=== PATIENT | male | born 1995 | race Two or more races ===

== ENCOUNTER 2020-09-02 14:00 | Inpatient (IN) ==
[2020-09-02] MEDS ORDERED: SODIUM CHLORIDE 0.9% 1000ML 1,000 ML IV SCH (14:37)
--- NOTE | 2020-09-02 14:43 | Emergency Department Note ---
History of Present Illness General Chief complaint: Abdominal Pain Stated complaint: REFERRED BY [facility] Time Seen by Provider: 09/02/20 14:18 History of Present Illness Patient is a healthy 25-year-old male status post laparoscopic gastric bypass procedure 2 years ago who is referred to the emergency department for evaluation of vomiting x10 days. Patient states that about a week and a half ago, he started vomiting after eating. The first few times, he was not particularly worried because this does happen to them on occasion, but the symptoms persisted. He states that after he eats, he gets a dull epigastric pain, then 20 minutes later he promptly vomits. He was able to keep some food down initially, now is vomiting everything, including soft foods and liquids that he switched over to. He currently has no pain. He has been tolerating apple juice and popsicles over the weekend. There is no nausea associated with the vomiting. No hematemesis. He admits to decreased bowel movements, but no melen a or hematochezia. He admits to decreased urinary output but no urinary symptoms. He was seen at [facility] last week, 3 days ago, had an x-ray performed and blood work, which were reportedly unremarkable. He was given Zofran which he tried and did not help. He was in contact with the provider [facility] again today, and was directed to the emergency department for further work-up of his symptoms. He spoke with his doctor at home and intact with testing he might need an endoscopy. 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 Beliefs That Will Affect Care: None Current Living Situation: Alone Current Living Situation Comment: apartment Other Information That Helps Us Care for You: No Feels Safe at Home: Yes Safety Concerns: Feels Safe At This Time Assistive Devices: None Review of Systems A total of 10 systems reviewed and were otherwise negative Physical Exam Vital Signs Vital Signs - 24 hr 09/02/20 14:06 09/02/20 17:42 09/02/20 19:45 Temperature 37.1 C Temperature Source Temporal Artery Scan Pulse Rate 97 H Pulse Rate [Finger] 70 73 Pulse Rhythm Regular Pulse Rhythm [Finger] Regular Pulse Strength [Finger] Normal Respiratory Rate 18 18 18 Respiratory Effort / Characteristics Non-Labored Spontaneous Non-Labored Spontaneous Respiratory Depth Normal Normal Respiratory Pattern Regular Blood Pressure 109/74 Blood Pressure [Left Arm] 120/79 166/67 H Blood Pressure Mean 85 Blood Pressure Mean [Left Arm] 92 100 Pulse Oximetry 97 97 100 Oxygen Delivery Method Room Air Room Air Sepsis Recent Fever Within 48 Hours No Sepsis New/Unexplained Change in Mental Status No Sepsis Action Taken by Nursing No Action Required CONSTITUTIONAL: Patient is a pleasant, well-appearing 25-year-old male who is awake and alert and in no acute distress. EYES: Pupils equal, round, reactive to light and accommodation. EOMs intact without nystagmus. Sclera are anicteric. ENT: Tympanic membranes intact, with normal landmarks. External canals are clear. Oral and nasopharynx are clear. Mucous membranes are moist, no lesions, tongue and gums appear normal. CARDIOVASCULAR: Regular rate and rhythm, with normal S1 and S2, no murmur or gallop or rub is heard. Peripheral pulses easily palpable. RESPIRATORY: Breath sounds equal and clear to auscultation without wheezes, rales, or rhonchi heard. Full and equal chest expansion without accessory muscle use or retractions. ABDOMEN: Bowel sounds are present. Well-healed laparoscopic surgical scars are noted. Abdomen is soft, nondistended, tympanic to percussion throughout. Slight tenderness to palpation in the epigastric region, no guarding or rebound. There is no pain in the right upper quadrant, negative Urbina sign. No pain in the right lower quadrant over McBurney's point. No CVA tenderness. INTEGUMENTARY: No lesions or rash, normal skin turgor. LYMPH: No lymphadenopathy. Course Course The patient was seen and assessed as above. Old records were reviewed. IV lock was initiated and laboratory studies were collected. He was hydrated with normal saline solution and made NPO. CBC with differential, CMP, lipase and urinalysis were collected. CT scan of the abdomen pelvis with IV and oral contrast was ordered. Laboratory studies are fairly unremarkable. White count is 5100, no left shift, no bandemia. H&H 15.5 and 44.9. Electrolytes are within normal limits. BUN 17, creatinine 0.8. Transaminases are not elevated. Lipase is within normal limits. Urine microscopy is without signs of infection. Patient tolerated the oral CT contrast well, he did get a little bit nauseous, and it was given Zofran 4 mg IV. He was only able to drink about half of the cup of contrast however. CT scan of the abdomen pelvis with IV and oral contrast was reviewed with interpreting physician, Dr. Ashford. Patient appears to have a Katty-en-Y gastric bypass, in addition to a gastric band. The gastric pouch and distal esophagus are mildly distended and filled with contrast. There appears to be a partial obstruction at the gastrojejunostomy with impacted ingested contents at the anastomosis. The contrast does pass into the jejunum. Otherwise there is mild appendiceal wall thickening and a few appendicoliths, but no periappendiceal infiltration to suspect acute appendiciti s. Patient history and presentation were reviewed with attending physician. I did discuss the CT findings with general surgery on-call, Dr. Ferrell, who felt that due to the complicated surgical history the patient would be better served at a tertiary care center. CT findings were discussed with the patient, in addition to the need for transfer. He has elected [facility] in [place]. Transfer was initiated. The patient was reviewed with Dr. Campo, with [facility] surgery, and he felt that the patient needed upper endoscopy by GI, and that transfer was not indicated. I spoke with Dr. Ibarra, [facility], and discussed the patient with him. He states that he can scope the patient tomorrow. Consultation was then placed with the [facility] Hospitalist Service, Dr. Mcnally, for admission. Administered Medications Potassium Chloride/Sodium Chloride (Normal Saline W/20 Meq Kcl) 20 meq in 1,000 mls @ 100 mls/hr IV .Q10H [facility] Stop: 10/03/20 00:14 Last Admin: 09/03/20 00:49 Dose: 100 mls/hr Documented by: [id number] Famotidine 20 mg/ Syringe 5 mls @ 2.5 mls/min IV BID [facility] Stop: 10/03/20 00:29 Last Admin: 09/03/20 00:50 Dose: 2.5 mls/min Documented by: [id number] Discontinued Medications Sodium Chloride (Nss 1000ml) 1,000 mls @ 999 mls/hr IV .Q1H1M [facility] Stop: 09/02/20 15:37 Last Infusion: 09/02/20 16:57 Dose: 0 mls/hr Documented by: [id number] Admin: 09/02/20 15:11 Dose: 999 mls/hr Documented by: [id number] Sodium Chloride (Nss 1000ml) 1,000 mls @ 250 mls/hr IV .Q4H [facility] Stop: 10/02/20 14:44 Last Admin: 09/02/20 23:49 Dose: Not Given Documented by: [id number] Admin: 09/02/20 23:49 Dose: Not Given Documented by: [id number] Infusion: 09/02/20 20:58 Dose: 0 mls/hr Documented by: [id number] Admin: 09/02/20 16:56 Dose: 250 mls/hr Documented by: [id number] Ioversol (Optiray 300 100ml) 88 ml IV ONCE ONE Stop: 09/02/20 17:22 Last Admin: 09/02/20 17:22 Dose: 88 ml Documented by: [id number] Ketorolac Tromethamine (Ketorolac Tromethamine 60 Mg/2 Ml Vial) 60 mg IM NOW STA Stop: 09/02/20 15:13 Last Admin: 09/02/20 15:25 Dose: Not Given Documented by: [id number] Ondansetron HCl (Ondansetron Inj 2 Mg/Ml 2 Ml Vial) 4 mg IV NOW STA Stop: 09/02/20 15:55 Last Admin: 09/02/20 15:55 Dose: 4 mg Documented by: [id number] Medical Decision Making Differential Diagnosis Differential diagnoses entertained included GERD, gastritis, esophagitis, GERD, bowel obstruction, food bolus, peptic or duodenal ulcer, cholelithiasis, biliary colic, acute cholecystitis, ascending cholangitis, acute pancreatitis, among others. Medical Records Attestation: I reviewed the patient's medical records. Home Medications Current Medication List: was personally reviewed by me Laboratory Data Attestation: I reviewed the patient's lab results. Result diagrams: 09/02/20 14:59 09/02/20 14:59 Lab Results 09/02/20 09/02/20 09/02/20 Range/Units 14:59 14:59 16:55 WBC 5.18 (4.8-10.8) K/uL RBC 5.34 (4.7-6.1) M/uL Hgb 15.5 (14.0-18.0) g/dL Hct 44.9 (42-52) % MCV 84.1 (80-100) fL MCH 29.0 (25-34) pg MCHC 34.5 (32-36) g/dL RDW Std Deviation 39.3 (36.4-46.3) fL RDW Coeff of Sohan 12.8 (11.5-14.5) % Plt Count 259 (130-400) K/uL MPV 9.8 (7.4-10.4) fL Immature Gran % (Auto) 0.2 % Neut % (Auto) 53.1 % Lymph % (Auto) 32.2 % Caswell % (Auto) 12.2 % Eos % (Auto) 1.9 % Baso % (Auto) 0.4 % Neut # (Auto) 2.75 (1.4-6.5) K/uL Lymph # (Auto) 1.67 (1.2-3.4) K/uL Caswell # (Auto) 0.63 H (0.11-0.59) K/uL Eos # (Auto) 0.10 (0-0.5) K/uL Baso # (Auto) 0.02 (0-0.2) K/uL Immature Gran # (Auto) 0.01 (0.00-0.02) K/uL Sodium 139 (136-145) mmol/L Potassium 4.1 (3.5-5.1) mmol/L Chloride 107 (98-107) mmol/L Carbon Dioxide 27 (21-32) mmol/L Anion Gap 6.0 (3-11) BUN 17 (7-18) mg/dl Creatinine 0.80 (0.6-1.4) mg/dl Est Cr Clr Drug Dosing 171.9 ml/min Est GFR ( Amer) 144.9 Est GFR (Non-Af Amer) 125.0 BUN/Creatinine Ratio 21.2 H (10-20) Glucose 82 (70-99) mg/dl Calcium 9.7 (8.5-10.1) mg/dl Total Bilirubin 0.4 (0.2-1) mg/dl AST 10 L (15-37) U/L ALT 18 (12-78) U/L Alkaline Phosphatase 108 (45-117) U/L Total Protein 8.2 (6.4-8.2) gm/dl Albumin 4.0 (3.4-5.0) gm/dl Globulin 4.2 H (2.5-4.0) gm/dl Albumin/Globulin Ratio 1.0 (0.9-2) Lipase 151 (73-393) U/L Urine Color Dark Yellow Urine Appearance Cloudy A (Clear) Urine pH 7.5 (4.5-7.5) Ur Specific Sutton 1.023 (1.000-1.030) Urine Protein Trace H (Negative) Urine Glucose (UA) Negative (Negative) Urine Ketones Trace H (Negative) Urine Blood Negative (Negative) Urine Nitrite Negative (Negative) Urine Bilirubin 1+ H (Negative) Urine Urobilinogen Negative (Negative) Ur Leukocyte Esterase Negative (Negative) Urine WBC (Auto) 1-5 (0-5) /hpf Urine RBC (Auto) 0-4 (0-4) /hpf U Hyaline Cast (Auto) 10-30 H (0-5) /lpf U Epithel Cells (Auto) >30 H (0-5) /lpf Urine Bacteria (Auto) Negative (Negative) Imaging Data Attestation: I personally reviewed and interpreted this imaging study as follows: Radiologist's Impression: Abdomen/Pelvis CT 09/02/20 14:36 CT OF THE ABDOMEN AND PELVIS WITH CONTRAST CLINICAL HISTORY: LAP BAND IN PLACE, VOMITS AFTER EATING COMPARISON STUDY: None. TECHNIQUE: Following IV administration of 89 mL of Optiray, axial images of the abdomen and pelvis were obtained from the lung bases to the proximal femurs. Images were reviewed in the axial, sagittal, and coronal planes. IV contrast was administered without complication. Automated exposure control was utilized for the study. A dose lowering technique was utilized adhering to the principles of ALARA. Oral contrast was administered. CT DOSE: 983.77 mGy.cm FINDINGS: Lung bases are unremarkable. The distal esophagus is mildly distended and filled with oral contrast. No pneumatosis, free air or portal venous gas is present. The liver, spleen, adrenal glands, kidneys and pancreas are unremarkable. Is no hydronephrosis. The caliber and wall thickness of small and large bowel are normal. A few appendicoliths within the appendix are noted. The caliber of the appendix is at the upper limits of normal, measuring 6 mm. There is no periappendiceal infiltration. Mild appendiceal wall thickening is present. Major vasculature is patent. There are postoperative findings consistent with Katty-en-Y gastric bypass. The gastric pouch is filled with oral contrast and appears distended. There is possible impacted ingested material measuring 4.2 x 2.6 cm at the gastrojejunostomy. Contrast does pass into the jejunum. The findings raise the possibility of a partial obstruction. IMPRESSION: 1. Postoperative findings suggestive of Katty-en-Y gastric bypass. Gastric pouch and distal esophagus mildly distended and filled with contrast. This may represent a partial obstruction at the gastrojejunostomy with impacted ingested contents at the anastomosis. 2. A few appendicoliths within the appendix with mild appendiceal wall thickening. No periappendiceal infiltration to strongly suggest acute appendicitis. ACT 112: Negative or not required by law. Electronically signed by: Zen Ashford M.D. 09/02/2020 5:42 PM ADDENDUM Addendum: In addition to apparent Katty-en-Y gastric bypass, there is a band-like density at the gastrojejunostomy which could reflect a type of gastric lap band however there is no percutaneous reservoir. Correlation with surgical history is recommended. Findings discussed with Leta Augustine at time of addendum. Electronically signed by: Zen Ashford M.D. 09/02/2020 5:56 PM MDM Narrative See ED course. Impression & Plan Gastric outlet obstruction, Partial small bowel obstruction, History of Katty-en-Y gastric bypass Discharge Plan Visit Data Chief Complaint: Abdominal Pain Stated Complaint: REFERRED BY [facility] ED Provider: Rik Sutherland ED Midlevel Provider: Leta Augustine Discharge Problem: Gastric outlet obstruction, Partial small bowel obstruction, History of Katty-en-Y gastric bypass Patient Disposition: Admitted As Inpatient Discharge Instructions Interventions: ED Discharge Assessment Last Done: 09/02/20 23:12
[2020-09-02] MEDS ORDERED: KETOROLAC TROMETHAMINE 60 MG/2 ML VIAL IM STA (15:12)
[2020-09-02 15:19] LABS: Basophils # (auto) 0.02 K/uL (0-0.2); Basophils % (auto) 0.4 %; Eosinophils % (auto) 1.9 %; Hematocrit (blood only) 44.9 % (42-52); Hemoglobin 15.5 g/dL (14.0-18.0); Immature Granulocytes # (auto) 0.01 K/uL (0.00-0.02); Immature Granulocytes % (auto) 0.2 %; Lymphocytes # (auto) 1.67 K/uL (1.2-3.4); Lymphocytes % (auto) 32.2 %; Mean Corpuscular Hgb Conc 34.5 g/dL (32-36); Mean Corpuscular Volume 84.1 fL (80-100); Mean Platelet Volume 9.8 fL (7.4-10.4); Monocytes # (auto) 0.63 K/uL (0.11-0.59); Monocytes % (auto) 12.2 %; Neutrophils # (auto) 2.75 K/uL (1.4-6.5); Neutrophils % (auto) 53.1 %; Platelet Count 259 K/uL (130-400); RDW Coefficient of Variation 12.8 % (11.5-14.5); RDW Standard Deviation 39.3 fL (36.4-46.3); Red Blood Count 5.34 M/uL (4.7-6.1); White Blood Count 5.18 K/uL (4.8-10.8)
[2020-09-02 15:43] LABS: BUN Creatinine Ratio 21.2 (10-20); Calcium 9.7 mg/dl (8.5-10.1); Creatinine Clr Calc Pharmacy 171.9 ml/min; Est GFR (African American) 144.9; Potassium 4.1 mmol/L (3.5-5.1)
[2020-09-02 15:46] LABS: Bilirubin,Total 0.4 mg/dl (0.2-1); Globulin 4.2 gm/dl (2.5-4.0); Total Protein 8.2 gm/dl (6.4-8.2)
[2020-09-02] MEDS ORDERED: ONDANSETRON INJ 2 MG/ML 2 ML VIAL IV STA (15:54)
[2020-09-02] MEDS: SODIUM CHLORIDE 0.9% 1000ML 1,000 ML IV SCH ×2 (16:56→23:49)
[2020-09-02 17:12] LABS: Appearance Urine Cloudy (Clear); Bacteria Urine Automated Negative (Negative); Bilirubin Urine 1+ (Negative); Blood Urine Negative (Negative); Color Urine Dark Yellow; Epithelial Cell Urine Auto >30 /lpf (0-5); Glucose Urine UA Negative (Negative); Ketones Urine Trace (Negative); Leukocyte Esterase Urine Negative (Negative); Nitrite Urine Negative (Negative); Protein Urine Trace (Negative); RBC Urine Automated 0-4 /hpf (0-4); Specific Gravity Urine 1.023 (1.000-1.030); Urobilinogen Urine Negative (Negative); pH Urine 7.5 (4.5-7.5)
[2020-09-02] MEDS ORDERED: OPTIRAY 300 100mL IV ONE (17:21)
--- NOTE | 2020-09-02 17:44 | CT Scan Report ---
CT OF THE ABDOMEN AND PELVIS WITH CONTRAST CLINICAL HISTORY: LAP BAND IN PLACE, VOMITS AFTER EATING COMPARISON STUDY: None. TECHNIQUE: Following IV administration of 89 mL of Optiray, axial images of the abdomen and pelvis we re obtained from the lung bases to the proximal femurs. Images were reviewed in the axial, sagittal, and coronal planes. IV contrast was administered without complication. Automated exposure control wa s utilized for the study. A dose lowering technique was utilized adhering to the principles of ALARA . Oral contrast was administered. CT DOSE: 983.77 mGy.cm FINDINGS: Lung bases are unremarkable. The distal esophagus is mildly distended and filled with oral contrast. No pneumatosis, free air or portal venous gas is present. The liver, spleen, adrenal glands , kidneys and pancreas are unremarkable. Is no hydronephrosis. The caliber and wall thickness of smal l and large bowel are normal. A few appendicoliths within the appendix are noted. The caliber of the appendix is at the upper limits of normal, measuring 6 mm. There is no periappendiceal infiltration. Mild appendiceal wall thickening is present. Major vasculature is patent. There are postoperative findings consistent with Katty-en-Y gastric bypass. The gastric pouch is fille d with oral contrast and appears distended. There is possible impacted ingested material measuring 4. 2 x 2.6 cm at the gastrojejunostomy. Contrast does pass into the jejunum. The findings raise the poss ibility of a partial obstruction. IMPRESSION: 1. Postoperative findings suggestive of Katty-en-Y gastric bypass. Gastric pouch and distal esophagus mildly distended and filled with contrast. This may represent a partial obstruction at the gastrojeju nostomy with impacted ingested contents at the anastomosis. 2. A few appendicoliths within the appendix with mild appendiceal wall thickening. No periappendiceal infiltration to strongly suggest acute appendicitis. ACT 112: Negative or not required by law. Electronically signed by: Zen Ashford M.D. 09/02/2020 5:42 PM
--- NOTE | 2020-09-02 20:33 | History & Physical Report ---
Date of Service September 02, 2020 Assessment & Plan (1) Gastric outlet obstruction: Intractable nausea and vomiting/gastric outlet obstruction/partial SBO/status post Katty-en-Y gastric bypass- NPO No NG tube at this time Famotidine 20 mg IV every 12 hours Zofran 4 mg IV every 6 hours as needed NSS + KCl 20 mEq at 100 mils per hour Serial CBC with differential, chemistry profile and magnesium levels aspiration precautions Consult gastroenterology, who is aware the patient, and will be in to perform an EGD in the a.m. Present on Admission?: Yes (2) Partial small bowel obstruction: See above Present on Admission?: Yes (3) History of Katty-en-Y gastric bypass: See above Present on Admission?: Yes History of Present Illness Chief Complaint: The patient was referred by [facility] to the emergency department with complaint of intermittent nausea and vomiting over the past 10 days. Primary Care Provider: [facility] The patient is a 25-year-old male with a past medical history including laparoscopic gastric bypass surgery with fixed gastric banding 2 years ago while in [place]. He initially presented to [facility] last week, due to symptoms of nausea and vomiting that began 10 days ago. He was also seen at [facility] 3 days ago, did have normal x-rays and laboratory work-up, but when he called the office there today, they advised him to come to the ED for assessment. He reports that he has primarily been drinking apple juice and eating popsicles over the past 10 days, having lost 40 pounds during that time, in addition to the 120 pounds he lost after the above surgery. 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 Beliefs That Will Affect Care: None Current Living Situation: Alone Current Living Situation Comment: apartment Other Information That Helps Us Care for You: No Feels Safe at Home: Yes Safety Concerns: Feels Safe At This Time Assistive Devices: None Review of Systems Review of Systems: The patient denies chest pain, palpitations, shortness of breath, dyspnea on exertion, cough, lower extremity swelling, sore throat, fevers, chills, sweats, blood in urine or stool, dysuria, urinary frequency or urgency, lightheadedness, dizziness, headache, memory loss, loss of consciousness, rash, abnormal bruising or bleeding, imbalance, focal or generalized weakness, numbness or tingling in arms or legs, generalized arthralgias or myalgias, back or neck pain, or night sweats. The review of systems is otherwise negative other than for that already noted above, and at least 10 systems have been reviewed. Physical Exam Physical Exam: The patient is awake, alert and oriented 3, well developed and well nourished, normocephalic and atraumatic, lying in bed and in no acute distress. HEENT--PERRL, EOMI, mucous membranes and oropharynx dry. Neck--supple. No JVD. No bruits. Thyroid normal, trachea midline, no adenopathy. Heart--normal S1 and S2. No murmurs, rubs or gallops. Lungs--clear bilaterally, no respiratory distress, no accessory muscle use. Abdomen--normal bowel sounds and soft. Mild epigastric tenderness nondistended. no hernias or masses, no organomegaly. Extremities--no cyanosis or clubbing. No edema. Dermatologic--normal skin turgor, normal color, no abnormal lymph nodes, no rash. Neurologic--cranial nerves II through XII grossly intact. Rheumatologic--normal range of motion. Psychiatric--normal affect. Results & Data Results & Data ([facility]) Vital Signs (Past 12 Hours) Vital Signs Temp Pulse Pulse Resp BP BP Pulse Ox 09/02/20 19:45 73 18 166/67 H 100 09/02/20 17:42 70 18 120/79 97 09/02/20 14:06 98.8 F 97 H 18 109/74 97 Laboratory Results Laboratory Results WBC 5.18 K/uL (4.8-10.8) 09/02/20 14:59 RBC 5.34 M/uL (4.7-6.1) 09/02/20 14:59 Hgb 15.5 g/dL (14.0-18.0) 09/02/20 14:59 Hct 44.9 % (42-52) 09/02/20 14:59 MCV 84.1 fL (80-100) 09/02/20 14:59 MCH 29.0 pg (25-34) 09/02/20 14:59 MCHC 34.5 g/dL (32-36) 09/02/20 14:59 RDW Std Deviation 39.3 fL (36.4-46.3) 09/02/20 14:59 RDW Coeff of Sohan 12.8 % (11.5-14.5) 09/02/20 14:59 Plt Count 259 K/uL (130-400) 09/02/20 14:59 MPV 9.8 fL (7.4-10.4) 09/02/20 14:59 Immature Gran % (Auto) 0.2 % 09/02/20 14:59 Neut % (Auto) 53.1 % 09/02/20 14:59 Lymph % (Auto) 32.2 % 09/02/20 14:59 Hinds % (Auto) 12.2 % 09/02/20 14:59 Eos % (Auto) 1.9 % 09/02/20 14:59 Baso % (Auto) 0.4 % 09/02/20 14:59 Neut # (Auto) 2.75 K/uL (1.4-6.5) 09/02/20 14:59 Lymph # (Auto) 1.67 K/uL (1.2-3.4) 09/02/20 14:59 Hinds # (Auto) 0.63 K/uL (0.11-0.59) H 09/02/20 14:59 Eos # (Auto) 0.10 K/uL (0-0.5) 09/02/20 14:59 Baso # (Auto) 0.02 K/uL (0-0.2) 09/02/20 14:59 Immature Gran # (Auto) 0.01 K/uL (0.00-0.02) 09/02/20 14:59 Sodium 139 mmol/L (136-145) 09/02/20 14:59 Potassium 4.1 mmol/L (3.5-5.1) 09/02/20 14:59 Chloride 107 mmol/L (98-107) 09/02/20 14:59 Carbon Dioxide 27 mmol/L (21-32) 09/02/20 14:59 Anion Gap 6.0 (3-11) 09/02/20 14:59 BUN 17 mg/dl (7-18) 09/02/20 14:59 Creatinine 0.80 mg/dl (0.6-1.4) 09/02/20 14:59 Est Cr Clr Drug Dosing 171.9 ml/min 09/02/20 14:59 Est GFR ( Amer) 144.9 09/02/20 14:59 Est GFR (Non-Af Amer) 125.0 09/02/20 14:59 BUN/Creatinine Ratio 21.2 (10-20) H 09/02/20 14:59 Glucose 82 mg/dl (70-99) 09/02/20 14:59 Calcium 9.7 mg/dl (8.5-10.1) 09/02/20 14:59 Total Bilirubin 0.4 mg/dl (0.2-1) 09/02/20 14:59 AST 10 U/L (15-37) L 09/02/20 14:59 ALT 18 U/L (12-78) 09/02/20 14:59 Alkaline Phosphatase 108 U/L (45-117) 09/02/20 14:59 Total Protein 8.2 gm/dl (6.4-8.2) 09/02/20 14:59 Albumin 4.0 gm/dl (3.4-5.0) 09/02/20 14:59 Globulin 4.2 gm/dl (2.5-4.0) H 09/02/20 14:59 Albumin/Globulin Ratio 1.0 (0.9-2) 09/02/20 14:59 Lipase 151 U/L (73-393) 09/02/20 14:59 Urine Color Dark Yellow 09/02/20 16:55 Urine Appearance Cloudy (Clear) A 09/02/20 16:55 Urine pH 7.5 (4.5-7.5) 05/10/21 16:55 Ur Specific [place] 1.023 (1.000-1.030) 09/02/20 16:55 Urine Protein Trace (Negative) H 09/02/20 16:55 Urine Glucose (UA) Negative (Negative) 09/02/20 16:55 Urine Ketones Trace (Negative) H 09/02/20 16:55 Urine Blood Negative (Negative) 09/02/20 16:55 Urine Nitrite Negative (Negative) 09/02/20 16:55 Urine Bilirubin 1+ (Negative) H 09/02/20 16:55 Urine Urobilinogen Negative (Negative) 09/02/20 16:55 Ur Leukocyte Esterase Negative (Negative) 09/02/20 16:55 Urine WBC (Auto) 1-5 /hpf (0-5) 09/02/20 16:55 Urine RBC (Auto) 0-4 /hpf (0-4) 09/02/20 16:55 U Hyaline Cast (Auto) 10-30 /lpf (0-5) H 09/02/20 16:55 U Epithel Cells (Auto) >30 /lpf (0-5) H 09/02/20 16:55 Urine Bacteria (Auto) Negative (Negative) 09/02/20 16:55 COVID-19 Eval Order CovFluRsv at [facility] 09/02/20 21:46 SARS-CoV-2 (PCR) NEGATIVE (Negative) 09/02/20 21:46 Influenza Type A (PCR) Negative (Neg) 09/02/20 21:46 Influenza Type B (PCR) Negative (Neg) 09/02/20 21:46 RSV (RT-PCR) Negative (Neg) 09/02/20 21:46 Impressions Abdomen/Pelvis CT 09/02/20 14:36 CT OF THE ABDOMEN AND PELVIS WITH CONTRAST CLINICAL HISTORY: LAP BAND IN PLACE, VOMITS AFTER EATING COMPARISON STUDY: None. TECHNIQUE: Following IV administration of 89 mL of Optiray, axial images of the abdomen and pelvis were obtained from the lung bases to the proximal femurs. Images were reviewed in the axial, sagittal, and coronal planes. IV contrast was administered without complication. Automated exposure control was utilized for the study. A dose lowering technique was utilized adhering to the principles of ALARA. Oral contrast was administered. CT DOSE: 983.77 mGy.cm FINDINGS: Lung bases are unremarkable. The distal esophagus is mildly distended and filled with oral contrast. No pneumatosis, free air or portal venous gas is present. The liver, spleen, adrenal glands, kidneys and pancreas are unremarkable. Is no hydronephrosis. The caliber and wall thickness of small and large bowel are normal. A few appendicoliths within the appendix are noted. The caliber of the appendix is at the upper limits of normal, measuring 6 mm. There is no periappendiceal infiltration. Mild appendiceal wall thickening is present. Major vasculature is patent. There are postoperative findings consistent with Katty-en-Y gastric bypass. The gastric pouch is filled with oral contrast and appears distended. There is possible impacted ingested material measuring 4.2 x 2.6 cm at the gastrojejunostomy. Contrast does pass into the jejunum. The findings raise the possibility of a partial obstruction. IMPRESSION: 1. Postoperative findings suggestive of Katty-en-Y gastric bypass. Gastric pouch and distal esophagus mildly distended and filled with contrast. This may represent a partial obstruction at the gastrojejunostomy with impacted ingested contents at the anastomosis. 2. A few appendicoliths within the appendix with mild appendiceal wall thickening. No periappendiceal infiltration to strongly suggest acute a ppendicitis. ACT 112: Negative or not required by law. Electronically signed by: Zen Ashford M.D. 09/02/2020 5:42 PM Code Status & VTE Plan Code Status Full code VTE Prophylaxis Plan VTE Prophylaxis will be ordered: Yes PG Care Time/CCT Total # of Minutes Spent Total Time Spent with Patient: Total time spent is greater than 50% in coordination of care (as documented) at patient's floor/unit and/or counseling patient: Coding Level of Care Code 93010 Initial Inpt Care Lvl 2 Diagnoses Gastric outlet obstruction K31.1 Partial small bowel obstruction K56.600 History of Katty-en-Y gastric bypass Z98.84
[2020-09-02 22:42] LABS: Influenza A virus by PCR Negative (Neg); Influenza B virus by PCR Negative (Neg); RSV by PCR Negative (Neg); SARS CoV2 RNA(COVID-19) InHosp NEGATIVE (Negative)
[2020-09-03] MEDS: NSS + 20MEQ KCL 20 MEQ/1,000 ML BAG IV SCH ×3 (00:49→20:54)
[2020-09-03] MEDS: FAMOTIDINE 20 MG in SYRINGE 3 ML IV SCH ×3 (00:50→20:58)
[2020-09-03] MEDS ORDERED: ONDANSETRON INJ 2 MG/ML 2 ML VIAL IV PRN (02:12)
--- NOTE | 2020-09-03 11:49 | Gastrointestinal Consultation ---
Date of Consultation September 03, 2020 Assessment & Plan (1) Gastric outlet obstruction: 25 year old male s/p RYGB admitted w/ eight days of pain, food aversion and nausea/vomiting, CTAP w/ RYGB anatomy and band-like density at the gastrojejunostomy w/ gastric dilation raising concern for GOO. This AM he is asymptomatic. Stat KUB to assess for contrast retention EGD timing and location to be determined IV PPI BID NPO Obtain old records for exact gastric procedure he had done Thank you for allowing us to participate in the care of this patient. Please call with any acute changes, questions or concerns. Please see addendum below with additional recommendation from my supervising physician. Supervising Physician Co-Signing Physician Notes Attending attestation I have seen, examined this patient, and agree with the findings and above by our mid-level provider ISMAEL Sarmiento, with the following additions: Patient with an atypical appearance radiographically of a Katty-en-Y gastric bypass. In fact he has what appears to be a narrowing at his GJ anastomosis with an extra luminary radiopaque band that surrounds this area. This may be causing obstruction, certainly looks well today, and will warrant EGD, will obtain a KUB to see if he still is obstructed, then will determine timing of EGD. For now would continue to be n.p.o. IV twice daily PPI. History of Present Illness Reason for Consultation: ?GOO Requesting Physician: Génesis Attending Physician: Hugo Capps MD History of Present Illness 25 year old male with report of RYGB at OSH about 5 years ago who is admitted through the ED w/ 8 days of upper abd pain, PO intolerance and vomiting. In the ED, CT concerning for RYGB anatomy w/ a extraluminal band-like density at the gastrojejunostomy w/ dilation raising the concern for GOO. This AM pt notes he is comfortable. No pain. No nausea/vomiting. No acute lower GI symptoms. CTAP 2020: Postoperative findings suggestive of Katty-en-Y gastric bypass. Gastric pouch and distal esophagus mildly distended and filled with contrast. This may represent a partial obstruction at the gastrojejunostomy with impacted ingested contents at the anastomosis. A few appendicoliths within the appendix with mild appendiceal wall thickening. No periappendiceal infiltration to strongly suggest acute appendicitis. 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 Beliefs That Will Affect Care: None Current Living Situation: Alone Current Living Situation Comment: apartment Other Information That Helps Us Care for You: No Feels Safe at Home: Yes Safety Concerns: Feels Safe At This Time Assistive Devices: None Review of Systems Review of Systems: All systems reviewed & are unremarkable except as noted in HPI & below Physical Exam Constitutional: WD/WN, vitals as above Neck: trachea midline, no thyromegaly Respiratory: normal respiratory effort, lungs clear to auscultation Cardiovascular: RRR, no murmur, no edema Gastrointestinal (Abdomen): normal bowel sounds, soft, nontender, no hepatosplenomegaly Results & Data ([facility]) Vital Signs (Past 12 Hours) Vital Signs Temp Pulse Resp BP Pulse Ox 09/03/20 06:56 36.5 C 55 L 20 108/70 100 09/02/20 23:53 36.6 C 59 L 16 114/71 99 Laboratory Results 09/02/20 09/02/20 09/02/20 Range/Units 21:46 21:46 16:55 WBC (4.8-10.8) K/uL RBC (4.7-6.1) M/uL Hgb (14.0-18.0) g/dL Hct (42-52) % MCV (80-100) fL MCH (25-34) pg MCHC (32-36) g/dL RDW Std Deviation (36.4-46.3) fL RDW Coeff of Sohan (11.5-14.5) % Plt Count (130-400) K/uL MPV (7.4-10.4) fL Immature Gran % (Auto) % Neut % (Auto) % Lymph % (Auto) % Russell % (Auto) % Eos % (Auto) % Baso % (Auto) % Neut # (Auto) (1.4-6.5) K/uL Lymph # (Auto) (1.2-3.4) K/uL Russell # (Auto) (0.11-0.59) K/uL Eos # (Auto) (0-0.5) K/uL Baso # (Auto) (0-0.2) K/uL Immature Gran # (Auto) (0.00-0.02) K/uL Sodium (136-145) mmol/L Potassium (3.5-5.1) mmol/L Chloride (98-107) mmol/L Carbon Dioxide (21-32) mmol/L Anion Gap (3-11) BUN (7-18) mg/dl Creatinine (0.6-1.4) mg/dl Est Cr Clr Drug Dosing ml/min Est GFR ( Amer) Est GFR (Non-Af Amer) BUN/Creatinine Ratio (10-20) Glucose (70-99) mg/dl Calcium (8.5-10.1) mg/dl Total Bilirubin (0.2-1) mg/dl AST (15-37) U/L ALT (12-78) U/L Alkaline Phosphatase (45-117) U/L Total Protein (6.4-8.2) gm/dl Albumin (3.4-5.0) gm/dl Globulin (2.5-4.0) gm/dl Albumin/Globulin Ratio (0.9-2) Lipase (73-393) U/L Urine Color Dark Yellow Urine Appearance Cloudy A (Clear) Urine pH 7.5 (4.5-7.5) Ur Specific [place] 1.023 (1.000-1.030) Urine Protein Trace H (Negative) Urine Glucose (UA) Negative (Negative) Urine Ketones Trace H (Negative) Urine Blood Negative (Negative) Urine Nitrite Negative (Negative) Urine Bilirubin 1+ H (Negative) Urine Urobilinogen Negative (Negative) Ur Leukocyte Esterase Negative (Negative) Urine WBC (Auto) 1-5 (0-5) /hpf Urine RBC (Auto) 0-4 (0-4) /hpf U Hyaline Cast (Auto) 10-30 H (0-5) /lpf U Epithel Cells (Auto) >30 H (0-5) /lpf Urine Bacteria (Auto) Negative (Negative) COVID-19 Eval Order CovFluRsv at [facility] SARS-CoV-2 (PCR) NEGATIVE (Negative) Influenza Type A (PCR) Negative (Neg) Influenza Type B (PCR) Negative (Neg) RSV (RT-PCR) Negative (Neg) 09/02/20 09/02/20 Range/Units 14:59 14:59 WBC 5.18 (4.8-10.8) K/uL RBC 5.34 (4.7-6.1) M/uL Hgb 15.5 (14.0-18.0) g/dL Hct 44.9 (42-52) % MCV 84.1 (80-100) fL MCH 29.0 (25-34) pg MCHC 34.5 (32-36) g/dL RDW Std Deviation 39.3 (36.4-46.3) fL RDW Coeff of Sohan 12.8 (11.5-14.5) % Plt Count 259 (130-400) K/uL MPV 9.8 (7.4-10.4) fL Immature Gran % (Auto) 0.2 % Neut % (Auto) 53.1 % Lymph % (Auto) 32.2 % Russell % (Auto) 12.2 % Eos % (Auto) 1.9 % Baso % (Auto) 0.4 % Neut # (Auto) 2.75 (1.4-6.5) K/uL Lymph # (Auto) 1.67 (1.2-3.4) K/uL Russell # (Auto) 0.63 H (0.11-0.59) K/uL Eos # (Auto) 0.10 (0-0.5) K/uL Baso # (Auto) 0.02 (0-0.2) K/uL Immature Gran # (Auto) 0.01 (0.00-0.02) K/uL Sodium 139 (136-145) mmol/L Potassium 4.1 (3.5-5.1) mmol/L Chloride 107 (98-107) mmol/L Carbon Dioxide 27 (21-32) mmol/L Anion Gap 6.0 (3-11) BUN 17 (7-18) mg/dl Creatinine 0.80 (0.6-1.4) mg/dl Est Cr Clr Drug Dosing 171.9 ml/min Est GFR ( Amer) 144.9 Est GFR (Non-Af Amer) 125.0 BUN/Creatinine Ratio 21.2 H (10-20) Glucose 82 (70-99) mg/dl Calcium 9.7 (8.5-10.1) mg/dl Total Bilirubin 0.4 (0.2-1) mg/dl AST 10 L (15-37) U/L ALT 18 (12-78) U/L Alkaline Phosphatase 108 (45-117) U/L Total Protein 8.2 (6.4-8.2) gm/dl Albumin 4.0 (3.4-5.0) gm/dl Globulin 4.2 H (2.5-4.0) gm/dl Albumin/Globulin Ratio 1.0 (0.9-2) Lipase 151 (73-393) U/L Urine Color Urine Appearance (Clear) Urine pH (4.5-7.5) Ur Specific [place] (1.000-1.030) Urine Protein (Negative) Urine Glucose (UA) (Negative) Urine Ketones (Negative) Urine Blood (Negative) Urine Nitrite (Negative) Urine Bilirubin (Negative) Urine Urobilinogen (Negative) Ur Leukocyte Esterase (Negative) Urine WBC (Auto) (0-5) /hpf Urine RBC (Auto) (0-4) /hpf U Hyaline Cast (Auto) (0-5) /lpf U Epithel Cells (Auto) (0-5) /lpf Urine Bacteria (Auto) (Negative) COVID-19 Eval Order SARS-CoV-2 (PCR) (Negative) Influenza Type A (PCR) (Neg) Influenza Type B (PCR) (Neg) RSV (RT-PCR) (Neg)
--- NOTE | 2020-09-03 12:58 | XRay Report ---
KUB HISTORY: Status post placement of an enteric tube assess for GOO COMPARISON: CT abdomen and pelvis 09/02/2020 FINDINGS: Enteric contrast is noted within the colon. Surgical clips of the abdominal left upper quad rant. Nonobstructive bowel gas pattern. No enteric tubes identified. No renal calculi. No ureteral c alculi. No pneumoperitoneum or pneumatosis. No fracture. IMPRESSION: Progression of enteric contrast into the large bowel with nonobstructive bowel gas pattern. ACT 112: Negative or not required by law. The above report was generated using voice recognition software. It may contain grammatical, syntax o r spelling errors. Electronically signed by: Primitivo Braun M.D. 09/03/2020 12:57 PM
--- NOTE | 2020-09-03 19:26 | Hospitalist Progress Note ---
Date of Service September 03, 2020 Assessment & Plan (1) Gastric outlet obstruction: Intractable nausea and vomiting/gastric outlet obstruction/partial SBO/status post Katty-en-Y gastric bypass- NPO except ice chips and sips No NG tube at this time Famotidine 20 mg IV every 12 hours Zofran 4 mg IV every 6 hours as needed Continue IV fluids - NSS + KCl 20 mEq at 100 ml/hr Appreciate gastroenterology consult with planned EGD tomorrow (2) Partial small bowel obstruction: See above (3) History of Katty-en-Y gastric bypass: See above Admission and Anticipated Discharge Date Admission Date: September 02, 2020 Subjective Patient able to tolerate thin liquids but even thick liquids cause vomiting. Discussed with gastroenterology and plan for EGD tomorrow. May have ice chips and sips today. No abdominal pain, diarrhea or melena. No further nausea or vomiting while NPO. Review of Systems Review of Systems: All systems reviewed & are unremarkable except as noted in HPI & below Physical Exam Constitutional: WD/WN, vitals as above Eyes: + anicteric sclerae; normal pupil size Respiratory: normal respiratory effort, lungs clear to auscultation Cardiovascular: RRR, no murmur, no edema Gastrointestinal (Abdomen): normal bowel sounds, soft, nontender, no hepatosplenomegaly Skin: no rashes, warm and dry Results & Data Results & Data ([facility]) Vital Signs (Past 12 Hours) Vital Signs Temp Pulse Resp BP Pulse Ox 09/03/20 14:17 36.9 C 56 L 17 122/74 100 PG Care Time/CCT Total # of Minutes Spent Total Time Spent with Patient: Total time spent is greater than 50% in coordination of care (as documented) at patient's floor/unit and/or counseling patient: Coding Level of Care Code 31941 Subseq Hosp Care Lvl 2 Diagnoses Gastric outlet obstruction K31.1 Partial small bowel obstruction K56.600 History of Katty-en-Y gastric bypass Z98.84
[2020-09-04] MEDS: NSS + 20MEQ KCL 20 MEQ/1,000 ML BAG IV SCH (07:51)
[2020-09-04 08:16] LABS: BUN Creatinine Ratio 19.7 (10-20); Blood Urea Nitrogen 13 mg/dl (7-18); Calcium 8.6 mg/dl (8.5-10.1); Carbon Dioxide 24 mmol/L (21-32); Chloride 113 mmol/L (98-107); Creatinine Clr Calc Pharmacy 212.9 ml/min; Est GFR (African American) > 150.0; Est GFR (Non-African American) 136.2; Glucose 68 mg/dl (70-99); Sodium 143 mmol/L (136-145)
--- NOTE | 2020-09-04 09:02 | Gastroenterology Progress Note ---
Date of Service September 04, 2020 Assessment & Plan (1) Gastric outlet obstruction: 25 year old male s/p banded RYGB admitted w/ eight days of pain, food aversion and nausea/vomiting, CTAP w/ RYGB anatomy and band-like density at the gastrojejunostomy w/ gastric dilation raising concern for GOO. This AM he is asymptomatic. NPO for EGD today Thank you for allowing us to participate in the care of this patient. Please call with any acute changes, questions or concerns. Please see addendum below with additional recommendation from my supervising physician. Admission and Anticipated Discharge Date Admission Date: September 02, 2020 Supervising Physician Co-Signing Physician Notes Attending attestation I have seen, examined this patient, and agree with the findings and above by our mid-level provider ISMAEL Sarmiento, with the following additions: - Plan for EGD today to evaluate the post surgical anatomy Subjective pt was seen and evaluated, chart reviewed. sitting upright in bed feeling well this AM. No abd pain. No nausea/vomiting KUB reviewed. Review of Systems Constitutional: no fever, no chills and no fatigue Respiratory: no cough and no dyspnea Cardiovascular: no chest pain and no dyspnea Gastrointestinal: no abdominal pain, no blood in stools and no melena Physical Exam Constitutional: WD/WN, vitals as above Neck: trachea midline, no thyromegaly Respiratory: normal respiratory effort, lungs clear to auscultation Cardiovascular: RRR, no murmur, no edema Gastrointestinal (Abdomen): normal bowel sounds, soft, nontender, no hepatosplenomegaly Results & Data ([facility]) Vital Signs (Past 12 Hours) Vital Signs Temp Pulse Resp BP Pulse Ox 09/04/20 07:12 36.6 C 55 L 18 116/75 100 09/03/20 22:45 36.8 C 57 L 14 113/70 99 Laboratory Results 09/04/20 09/04/20 Range/Units 08:26 06:40 Sodium 143 (136-145) mmol/L Potassium 4.3 (3.5-5.1) mmol/L Chloride 113 H (98-107) mmol/L Carbon Dioxide 24 (21-32) mmol/L Anion Gap 6.0 (3-11) BUN 13 (7-18) mg/dl Creatinine 0.65 (0.6-1.4) mg/dl Est Cr Clr Drug Dosing 212.9 ml/min Est GFR ( Amer) > 150.0 Est GFR (Non-Af Amer) 136.2 BUN/Creatinine Ratio 19.7 (10-20) Glucose 68 L (70-99) mg/dl Calcium 8.6 (8.5-10.1) mg/dl
[2020-09-04] MEDS: FAMOTIDINE 20 MG in SYRINGE 3 ML IV SCH (09:26)
--- NOTE | 2020-09-04 10:00 | Anesthesiology Consultation ---
Date of Service September 04, 2020 Assessment & Plan (1) Encounter for pre-operative examination: History Surgery Operation Date: 09/04/20 16:45 Proposed Procedures p Esophagogastroduodenoscopy Dr Leonel Castaneda MD Height/Weight Height: 5 ft 11 in Weight: 101.8 kg Allergies Allergy/AdvReac Type Severity Reaction Status Date / Time No Known Allergies Allergy Verified 09/02/20 15:15 Medications Home Medications Medication Instructions Recorded Confirmed Last Taken ondansetron 4 mg TRANSLINGUAL Q6 PRN 09/02/20 09/02/20 Unknown Active Medications Generic Name Dose Route Start Last Admin Trade Name Freq PRN Reason Stop Dose Admin Potassium Chloride/Sodium Chloride 20 meq in 1,000 mls @ 100 mls/hr 09/03/20 00:15 09/04/20 07:51 Normal Saline W/20 Meq Kcl IV 10/03/20 00:14 100 mls/hr .Q10H MARIAA Administration Famotidine 20 mg/ Syringe 5 mls @ 2.5 mls/min 09/03/20 00:30 09/04/20 09:26 IV 10/03/20 00:29 2.5 mls/min BID MARIAA Administration NPO Date Last Intake of Fluids: 09/02/20 Time Last Intake of Fluids: 23:59 Past Medical History Medical History No significant past medical history Past Surgical History Surgical History History of gastric bypass Social History Smoking Status: Never smoker Hx Alcohol Use: No Hx Substance Use: No Physical Exam Vital Signs Last Vital Signs Temp 36.6 C 09/04/20 07:12 Pulse 55 L 09/04/20 07:12 Resp 18 09/04/20 07:12 BP 116/75 09/04/20 07:12 Pulse Ox 100 09/04/20 07:12 Testing Laboratory Results 09/02/20 14:59 09/04/20 08:26 Urine Color Dark Yellow 09/02/20 16:55 Urine Appearance Cloudy (Clear) A 09/02/20 16:55 Urine pH 7.5 (4.5-7.5) 09/02/20 16:55 Ur Specific Kirby 1.023 (1.000-1.030) 09/02/20 16:55 Urine Protein Trace (Negative) H 09/02/20 16:55 Urine Glucose (UA) Negative (Negative) 09/02/20 16:55 Urine Ketones Trace (Negative) H 09/02/20 16:55 Urine Nitrite Negative (Negative) 09/02/20 16:55 Ur Leukocyte Esterase Negative (Negative) 09/02/20 16:55 Urine WBC (Auto) 1-5 /hpf (0-5) 09/02/20 16:55 Urine RBC (Auto) 0-4 /hpf (0-4) 09/02/20 16:55 U Hyaline Cast (Auto) 10-30 /lpf (0-5) H 09/02/20 16:55 U Epithel Cells (Auto) >30 /lpf (0-5) H 09/02/20 16:55 Urine Bacteria (Auto) Negative (Negative) 09/02/20 16:55
[2020-09-04] MEDS ORDERED: LIDOCAINE HCL 2% 2 ML VIAL/AMP(20MG/ML) INFIL ONE (10:21)
[2020-09-04] MEDS ORDERED: PROPOFOL IV EMULSION 10 MG/ML 20 ML VIAL IV ONE (10:21)
--- NOTE | 2020-09-04 11:09 | GI REPORT ---
Patient Name: Sergio Blackman Procedure Date: 09/04/2020 10:45 AM Date of : 1995 Admit Type: Inpatient Age: 25 Gender: Male Attending MD: Manny Castaneda MD Procedure: Upper GI endoscopy Providers: Manny Castaneda MD Referring MD: Erin Ross Md, Treasure Ibarra MD Indications: Nausea with vomiting Patient Profile: History of "banded vivien - en- Y in [place]" Medicines: Monitored Anesthesia Care Complications: No immediate complications. Estimated blood loss: None. Estimated Blood Loss: Estimated blood loss: none. Procedure: Pre-Anesthesia Assessment: - Pre-Anesthesia Assessment: - Prior to the procedure, a History and Physical was performed, and patient medications, allergies and sensitivities were reviewed. The patient's tolerance of previous anesthesia was reviewed. Please see [facility] for complete details. - The risks and benefits of the procedure and the sedation options and risks were discussed with the patient. All questions were answered and informed consent was obtained. - Patient identification and proposed procedure were verified prior to the procedure by the physician and the nurse. The procedure was verified in the pre-procedure area in the procedure room. After obtaining informed consent, the endoscope was passed carefully and meticuously under direct vision and only advanced when the lumen was clearly identified, C02 insuflation was utilized throughout the entirity of the procedure. Throughout the procedure, the patient's blood pressure, pulse, and oxygen saturations were monitored continuously. After obtaining informed consent, the endoscope was passed under direct vision. Throughout the procedure, the patient's blood pressure, pulse, and oxygen saturations were monitored continuously. The scope was introduced through the mouth, and advanced to the jejunum. The upper GI endoscopy was accomplished without difficulty. The patient tolerated the procedure well. Findings: The examined esophagus was normal. Evidence of a Vivien-en-Y gastrojejunostomy was found. The gastrojejunal anastomosis was characterized by healthy appearing mucosa. This was traversed and was not stenosed. The anatomy was non-conventional with a larger than normal pouch that was cylindrical and elongated somewhat of a sleeve with a vivien limb. There appeared to be an area in the stomach that was more narrow (without stenosis) likely related to the extrinisc ring placement from prior surgery. The examined jejunum was normal. Impression: - Normal esophagus. - Vivien-en-Y gastrojejunostomy with gastrojejunal anastomosis characterized by healthy appearing mucosa. - Normal examined jejunum. - No specimens collected. Recommendation: - Return patient to hospital dee for ongoing care. - Follow up as scheduled with Minimally invasive surgery in [place] Possible extrinsic ring is slipping causing intermittent obstruction, lumen widely patent without stenosis or ulceration. - Continue present medications. - Advance diet as tolerated. Manny Castaneda MD 09/04/2020 11:08:26 AM This report has been signed electronically. Note Initiated On: 09/04/2020 10:45 AM Number of Addenda: 0 I attest to the content of the Intraoperative Record and orders documented therein, exceptions below {[id number]}
--- NOTE | 2020-09-04 14:17 | Discharge Summary ---
Date of Service September 04, 2020 Admission HPI Per Admitting Provider The patient is a 25-year-old male with a past medical history including laparoscopic gastric bypass surgery with fixed gastric banding 2 years ago while in [place]. He initially presented to [facility] last week, due to symptoms of nausea and vomiting that began 10 days ago. He was also seen at [facility] 3 days ago, did have normal x-rays and laboratory work-up, but when he called the office there today, they advised him to come to the ED for assessment. He reports that he has primarily been drinking apple juice and eating popsicles over the past 10 days, having lost 40 pounds during that time, in addition to the 120 pounds he lost after the above surgery. Principal Diagnosis gastric outlet obstruction-resolved Discharge Exam Constitutional WD/WN, vitals as above Eyes + anicteric sclerae Neck trachea midline, no thyromegaly Respiratory normal respiratory effort, lungs clear to auscultation Cardiovascular RRR, no murmur, no edema Chest (Breasts) Chest: normal inspection of chest Gastrointestinal (Abdomen) normal bowel sounds, soft, nontender, no hepatosplenomegaly Musculoskeletal Extremities: extremities normal to inspection; no cyanosis and no clubbing Skin no rashes, warm and dry Neurologic moves all extremities and awake; no focal motor deficits Psychiatric A+Ox3, euthymic affect Lymphatic no lymphedema Discharge Data Allergies Allergy/AdvReac Type Severity Reaction Status Date / Time No Known Allergies Allergy Verified 09/04/20 10:12 Consultations 09/02/20 18:44 ED Decision to Admit Stat 09/03/20 12:37 Consult Gastroenterology Routine Procedures Performed Operation Date: 09/04/20 16:45 Actual Procedures p Esophagogastroduodenoscopy(Not Applicable) - Manny Castaneda MD Ordered Studies 09/02/20 14:36 CT abd pelvis oral and IV con Stat Abdomen/Pelvis CT 09/02/20 14:36 CT OF THE ABDOMEN AND PELVIS WITH CONTRAST CLINICAL HISTORY: LAP BAND IN PLACE, VOMITS AFTER EATING COMPARISON STUDY: None. TECHNIQUE: Following IV administration of 89 mL of Optiray, axial images of the abdomen and pelvis were obtained from the lung bases to the proximal femurs. Images were reviewed in the axial, sagittal, and coronal planes. IV contrast was administered without complication. Automated exposure control was utilized for the study. A dose lowering technique was utilized adhering to the principles of ALARA. Oral contrast was administered. CT DOSE: 983.77 mGy.cm FINDINGS: Lung bases are unremarkable. The distal esophagus is mildly distended and filled with oral contrast. No pneumatosis, free air or portal venous gas is present. The liver, spleen, adrenal glands, kidneys and pancreas are unremarkable. Is no hydronephrosis. The caliber and wall thickness of small and large bowel are normal. A few appendicoliths within the appendix are noted. The caliber of the appendix is at the upper limits of normal, measuring 6 mm. There is no periappendiceal infiltration. Mild appendiceal wall thickening is present. Major vasculature is patent. There are postoperative findings consistent with Katty-en-Y gastric bypass. The gastric pouch is filled with oral contrast and appears distended. There is possible impacted ingested material measuring 4.2 x 2.6 cm at the gastrojejunostomy. Contrast does pass into the jejunum. The findings raise the possibility of a partial obstruction. IMPRESSION: 1. Postoperative findings suggestive of Katty-en-Y gastric bypass. Gastric pouch and distal esophagus mildly distended and filled with contrast. This may represent a partial obstruction at the gastrojejunostomy with impacted ingested contents at the anastomosis. 2. A few appendicoliths within the appendix with mild appendiceal wall thickening. No periappendiceal infiltration to strongly suggest acute appendicitis. ACT 112: Negative or not required by law. Electronically signed by: Zen Ashford M.D. 09/02/2020 5:42 PM KUB X-Ray 09/03/20 11:47 KUB HISTORY: Status post placement of an enteric tube assess for GOO COMPARISON: CT abdomen and pelvis 09/02/2020 FINDINGS: Enteric contrast is noted within the colon. Surgical clips of the abdominal left upper quadrant. Nonobstructive bowel gas pattern. No enteric tubes identified. No renal calculi. No ureteral calculi. No pneumoperitoneum or pneumatosis. No fracture. IMPRESSION: Progression of enteric contrast into the large bowel with nonobstructive bowel gas pattern. ACT 112: Negative or not required by law. The above report was generated using voice recognition software. It may contain grammatical, syntax or spelling errors. Electronically signed by: Primitivo Braun M.D. 09/03/2020 12:57 PM Hospital Course (1) Gastric outlet obstruction: Intractable nausea and vomiting/gastric outlet obstruction/partial SBO/status post Katty-en-Y gastric bypass- Was treated with IVFs, kept NPO Had EGD the following day and no obstruction found Doing much better, no N/V, is tolerating soft diet, and GI thinks possibly the fixed ring is sliding and causing intermittent obstruction Lytes ok Ok to dc to home with soft diet and have close f/u with the Minimally Invasive Surgeon in near future at [facility] (2) Partial small bowel obstruction: resolved (3) History of Katty-en-Y gastric bypass: See above Dspo-dc to home Total Time Total Time Spent Total Time Spent (In Minutes): 35 min Total Time Includes: Examination of the Patient, Discharge Planning, Medication Reconciliation and Communication With Other Providers (GI Dr. Castaneda) Discharge Plan Discharge Items Patient Disposition: Home - Self-Care Reason For Visit: PARTIAL OBSTRUCTION GASTROJEJUNOSOMY ANASTOMOSIS Discharge Diagnosis: Gastric outlet obstruction Condition on Discharge: Good Activity: As commented below Lifting: Gradually increase as tolerated Bathing: No limitations Exercise/Sports: Gradually increase as tolerated Non-emergency contact: Primary Care Provider, Surgeon and Land Sales Agent Call non-emergency contact if: you have any medication questions and your symptoms worsen Follow-up/Referrals: Manny Castaneda MD [Physician] - (Please ensure [facility] has contacted you regarding your outpatient follow up with your Surgeon within 2 weeks.) [facility] [Primary Care Provider] - (Please follow up within 1-2 weeks.) Diet: Low Fiber Diet Comment: Soft diet Addtl Attending Provider Instructions: Please await a call from [facility] to get you a local appointment with the Surgeon rather than going to [place]. Continue a soft, low fiber diet and can supplement with Boost or Ensure shakes as needed for protein/calories. Pending Studies at Discharge: No Stand-Alone Forms: My [facility] Medications and DC Order Prescriptions: Discontinued ondansetron 4 mg tablet,disintegrating 4 mg translingual Q6 PRN (Reason: Nausea) RF: 0 Discharge Orders: Discharge Order (Routine); Ordered 09/04/20 Ordered By: Erin Ross Admission Data Admit Date/Time: 09/02/20 20:32 Attending Provider: Erin Ross Admit Provider: Hussein Summers Primary Care Provider: [facility] Other Providers: Bobo Mcnally ; Manny Castaneda Other Interventions: Discharge Summary Assessment (RN) Last Done: 09/04/20 11:18 Coding Level of Care Code D/C Day Management >30 mins Diagnoses Gastric outlet obstruction K31.1 Partial small bowel obstruction K56.600 History of Katty-en-Y gastric bypass Z98.84
--- NOTE | 2020-09-04 14:39 | Anesthesiology Progress Note ---
Date of Service September 04, 2020 Anesthesia Post Procedure Vital Signs Vital Signs: Temp Pulse Resp BP Pulse Ox 09/04/20 11:32 70 18 120/66 100 09/04/20 11:18 66 18 115/69 100 09/04/20 11:04 80 18 106/55 L 99 09/04/20 10:13 36.5 C 70 16 125/66 100 09/04/20 07:12 36.6 C 55 L 18 116/75 100 09/03/20 22:45 36.8 C 57 L 14 113/70 99 Transfer of Care Handoff Completed per policy Notes Mental Status: alert / awake / arousable and participated in evaluation Patient Amnestic to Procedure: Yes Nausea / Vomiting: adequately controlled Pain: adequately controlled Airway Patency, RR, SpO2: stable & adequate BP & HR: stable & adequate Hydration State: stable & adequate Anesthetic Complications: no major complications apparent and Pt Satisfied with anesthetic care
== END 2020-09-04 15:50 | disposition home or self-care (01) | DRG 381 ==
LOC: ED 14:00 → 3W 20:32 → SUATTDRO 20:32 → 3W 23:12